=== PATIENT | female | born 2005 | race Caucasian/White ===

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

== ENCOUNTER 2025-03-28 03:00 | Emergency (ER) | payer SELFPAY ==
[2025-03-28 03:27] LABS: BASOPHILS ABSOLUTE AUTO 0.1 K/mm3 (0.0-0.2); BASOPHILS PERCENT AUTO 0.8 % (0.0-1.0); EOSINOPHILS ABSOLUTE AUTO 0.1 K/mm3 (0.0-0.4); EOSINOPHILS PERCENT AUTO 0.9 % (0.0-6.0); IMMATURE GRAN ABSOLUTE AUTO 0.02 K/mm3 (0.00-0.05); IMMATURE GRAN PERCENT AUTO 0.3 % (0.0-0.4); LYMPHOCYTES ABSOLUTE AUTO 2.1 K/mm3 (1.0-4.8); LYMPHOCYTES PERCENT AUTO 27.9 % (24.0-44.0); MEAN PLATELET VOLUME 8.9 fl (9.4-12.3); MONOCYTES ABSOLUTE AUTO 0.7 K/mm3 (0.0-0.8); MONOCYTES PERCENT AUTO 9.5 % (0.0-8.0); NEUTROPHILS ABSOLUTE AUTO 4.7 K/mm3 (1.8-7.7); NEUTROPHILS PERCENT AUTO 60.6 % (41.0-71.0); NRBC ABSOLUTE 0.00 (0.00-0.02); NRBC PERCENT 0.0 % (0.0-0.2); PLATELET COUNT,PLT 336 K/mm3 (150-400); RED BLOOD CELL COUNT 4.40 M/mm3 (4.10-5.30); WHITE BLOOD CELL COUNT,WBC 7.67 K/mm3 (3.9-11.3)
[2025-03-28 03:28] LABS: APPEARANCE,URINE CLEAR (Clear); GLUCOSE,URINE NEGATIVE (Negative); OCCULT BLOOD,URINE NEGATIVE (Negative)
[2025-03-28 03:29] LABS: O2 SATURATION VENOUS 97.6; PCO2 VENOUS 32.0 mmHg (41-51); PH,VENOUS 7.36 (7.30-7.40); PO2 VENOUS 88.0 mmHG (40-80)
[2025-03-28 03:30] LABS: BASE EXCESS VENOUS -6.2 (-4.0-2.0); BICARBONATE,VENOUS 18.1 meq/L (22-26)
[2025-03-28 03:38] LABS: BUPRENORPHINE SCREEN,URINE NEGATIVE (CUTOFF=10); METHADONE SCREEN, URINE NEGATIVE (CUTOFF=200); METHAMPHETAMINES SCREEN, URINE NEGATIVE (CUTOFF=500); OXYCODONE SCREEN,URINE NEGATIVE (CUT0FF=100); THC SCREEN,URINE 20 NG/ML PRESUMPTIVE POSITIVE (CUTOFF=50)
[2025-03-28] MEDS: Ondansetron 4 MG/2 ML SDV IVPUSH ONE (03:41)
[2025-03-28] MEDS: Sodium Chloride 0.9% 10 ML Syringe FLUSH PRN (03:42)
[2025-03-28 03:48] LABS: AMPHETAMINES SCREEN, URINE NEGATIVE (CUTOFF=500)
[2025-03-28 03:56] LABS: A/G RATIO 1.3 (1-2); ALANINE AMINOTRANSFERASE,ALT 29 U/L (14-59); ASPARTATE AMNIOTRANSFERASE,AST 25 U/L (15-37); BILIRUBIN TOTAL 0.6 mg/dL (0.2-1.0); BLOOD UREA NITROGEN,BUN 7 mg/dL (7-18); CARBON DIOXIDE,CO2 19 mEq/L (21-32); CHLORIDE,CL 108 mEq/L (98-107); CREATININE 0.9 mg/dL (0.55-1.02); ESTIMATED GFR 94 mL/min (>60); ETHANOL BLOOD MEDICAL 0.35 gm% (0.00); GLUCOSE RANDOM 100 mg/dL (70-99); POTASSIUM,K 3.4 mEq/L (3.5-5.1); PROTEIN TOTAL,TP 7.9 g/dl (6.4-8.2); SODIUM,NA 143 mEq/L (136-145)
[2025-03-28 04:20] LABS: EPITHELIAL CELLS,URINE 0-5 /hpf (0-5); FINE GRANULAR CASTS,URINE 0-5 /lpf (0-5)
[2025-03-28] MEDS: LORazepam 2 MG/ML SDV IVPUSH ONE ×4 (06:04→11:30)
[2025-03-28] MEDS: LORazepam 2 MG/ML SDV IM ONE (06:08)
[2025-03-28] MEDS: LORazepam 2 MG/ML SDV ONE (08:22)
[2025-03-28] MEDS: Thiamine 200 MG/2 ML MDV IVPUSH ONE (08:42)
== END 2025-03-28 18:30 | disposition home or self-care (01) ==
LOC: JD.ED 03:00
DX: F10.120 Alcohol abuse with intoxication, uncomplicated (principal); Y90.0 Blood alcohol level of less than 20 mg/100 ml
CPT/HCPCS: 36415; 70450; 70450-26; 80053; 80143; 80179; 80306; 80307; 81001; 82803; 83605; 84703; 85025; 93005; 93010; 96361; 96374; 96375; 96376; 99284; 99285-25; C1758; J2060; J2359; J2405; J3411; J7030